=== PATIENT | female | born 1990 | race African-American/Black ===

== ENCOUNTER 2017-01-02 22:31 | Emergency (ER) | payer OTHER ==
[~2017-01-02] VITALS: Ht 165.1 cm; Wt 75.3 kg
[2017-01-03] MEDS ORDERED: NAPROSYN500 MG PO (00:10)
[2017-01-03] MEDS ORDERED: FLEXERIL5 MG PO (00:10)
[2017-01-03 00:14] VITALS: BP 132/88
== END 2017-01-03 00:37 | disposition home or self-care (01) ==
LOC: RME 22:31 → EME 22:31 → RME 01-03 00:37
DX: S16.1XXA Strain of muscle, fascia and tendon at neck level, initial encounter (principal); X58.XXXA Exposure to other specified factors, initial encounter; R20.2 Paresthesia of skin
CPT/HCPCS: 99281; 99283

== ENCOUNTER 2017-08-20 12:16 | Emergency (ER) | payer OTHER ==
[~2017-08-20] VITALS: Ht 165.1 cm; Wt 72.3 kg
[~2017-08-20 12:16] MED LIST: FLEXERIL5 MG PO; NAPROSYN500 MG PO
[2017-08-20 12:56] LABS: HEMATOCRIT 36.3 % (36.0-46.0); MCH 23.9 PG (29.0-34.0); MCHC 30.6 G/DL (30.0-36.0); MCV 78.2 FL (83-99); MEAN PLAT.VOLUME 9.4 uM^3 (9.5-12.4); PLATELET COUNT 448 K/uL (156-360); RBC DIS.WIDTH-CV 16.1 % (11.8-14.6); RED BLOOD COUNT 4.64 M/uL (3.80-5.20); WHITE BLOOD COUNT 6.2 K/uL (4.1-10.2)
[2017-08-20 13:05] LABS: CHLORIDE 107 mEq/L (99-109); POTASSIUM 3.8 mEq/L (3.7-5.4); SODIUM 141 mEq/L (136-147)
[2017-08-20 13:08] LABS: GLUCOSE 84 mg/dL (70-99)
[2017-08-20 13:09] LABS: ANION GAP 9 MEQ/L (2-14)
[2017-08-20 13:10] LABS: TOTAL BILIRUBIN 0.3 mg/dL (0.0-1.0)
[2017-08-20 13:11] LABS: ALKALINE PHOSPHATASE 103 IU/L (3-129); GFR ESTIMATE (CALCULATED) > 59 mL/min/
[2017-08-20 13:12] LABS: UREA NITROGEN (BUN) 9 mg/dL (9-23)
[2017-08-20 13:23] LABS: QUANTITATIVE HCG < 4.0 MIU/ML
[2017-08-20 13:33] LABS: ADD MIUA? YES; BILIRUBIN NEGATIVE; BLOOD MODERATE; COLOR YELLOW ((YELLOW)); GLUCOSE (STRIP) NEGATIVE; KETONES NEGATIVE; LEUKOCYTES NEGATIVE; NITRITE NEGATIVE; PROTEIN (STRIP) NEGATIVE; SPECIFIC GRAVITY 1.009 (1.000-1.030); UROBILINOGEN 0.2 MG/DL (0.2-1.0)
[2017-08-20 13:42] LABS: BACTERIA 1+ /HPF; EPITHELIAL CELLS 2+ /HPF; MUCUS TRACE /LPF; RED BLOOD CELLS 0-5 /HPF (0-5); UCUL ADDED? YES
[2017-08-20] MEDS ORDERED: VERTICALM25 MG PO (14:33)
[2017-08-20 14:44] VITALS: BP 115/85
== END 2017-08-20 14:45 | disposition home or self-care (01) ==
LOC: RME 12:16 → EME 12:16 → RME 14:45
DX: N39.0 Urinary tract infection, site not specified (principal); R42 Dizziness and giddiness
CPT/HCPCS: 80053; 81003; 84702; 85027; 87086; 99281; 99284